=== PATIENT | male | born 1980 | race Caucasian/White ===

== ENCOUNTER 2018-09-21 09:42 | Emergency (ER) | payer OTHER, SELFPAY ==
[2018-09-21 09:45] VITALS: PULSE 69; RESP 16; TEMP 37; O2SAT 98
--- NOTE | 2018-09-21 10:12 | DI.RAD_ITS ---
SYMPTOMS/DIAGNOSIS: SHOULDER PAIN AFTER FALL RIGHT SHOULDER: Five views. No priors. The soft tissues are unremarkable. IMPRESSION: No acute abnormality.
--- NOTE | 2018-09-21 11:26 | ED.GENADUL_ITS ---
Medical Decision Making <Tito Zamora NP - Last Filed: 09/21/18 12:21> Patient presenting to the emergency department for chief complaint of right shoulder pain. Patient states that he was carrying a large heavy table and coworker who was helping him carry it fell dropping the front and causing him to significantly place pressure on his right shoulder and also table landed against the anterior portion of shoulder. Physical exam shows superior anterior shoulder discomfort and full range of motion but pain with overhead extension. Patient denies any other injury or trauma and physical exam is otherwise unremarkable. Plan to perform radiological imaging to rule out acute fracture versus AC joint separate but given full range of motion doubt dislocation at this time. Pending results patient given ibuprofen. Review of radiological imaging shows no acute findings. Patient was given a sling, prescription for ibuprofen, and work note for light duty for the next week. Patient to follow-up with his local orthopedist for reassessment as needed if pain is not improving over the next week. Return precautions discussed. After discussion of diagnosis and plan of care patient has no further needs, questions, or concerns and states clear understanding to return to the emergency department for any worsening symptoms. <Padmini Galeas DO - Last Filed: 09/21/18 12:30> Patient was not seen or evaluated by me. I had opened his chart to assist nurse with plan prior to discharge to confirm provider's plan for sling place HPI <Tito Zamora NP - Last Filed: 09/21/18 12:21> General Mode of arrival: ambulatory . Date/Time Provider Initiated Documentation: 09/21/18 09:50 . Limitations to Documentation: no limitations . Information obtained by: patient . History of Present Illness 38 year old M presents to the emergency department with the chief complaint of Right shoulder pain/injury, described as moderate, with intensity rated at 7. Quality is described as sharp, and is localized to the right and upper extremity. Patient started experiencing this hour(s) (4) Movement worsens symptoms . Patient notes no other symptoms.. Patient did receive the following treatments prior to arrival, none Related Data Home Medications Medication Instructions Recorded Confirmed ibuprofen [IBU] 600 mg PO QID PRN #14 tab 09/21/18 Previous Rx's Medication Instructions Recorded ibuprofen [IBU] 600 mg PO QID PRN #14 tab 09/21/18 Allergies Allergy/AdvReac Type Severity Reaction Status Date / Time No Known Allergies Allergy Unverified 09/21/18 09:48 General Stated Complaint: Orthopedic MARYURI: 4 Review of Systems <Tito Zamora NP - Last Filed: 09/21/18 12:21> Cardiovascular Denies chest pain, Denies syncope and Denies dyspnea Respiratory Denies dyspnea Musculoskeletal Reports as per HPI, Denies numbness and Denies tingling Integumentary/Breasts Denies rash, Denies sores and Denies wounds Neurologic Denies syncope, Denies numbness and Denies tingling PFSH <Tito Zamora NP - Last Filed: 09/21/18 12:21> Social History Smoking and Tabacco status: Current every day Exam <Tito Zamora NP - Last Filed: 09/21/18 12:21> Const General: cooperative and no acute distress Orientation: alert, awake and oriented x3 Resp Effort & Inspection: normal respiratory effort and able to speak in complete sentences Cardio Rate: regular rate Rhythm: regular rhythm Extrem Right upper extremity: shoulder/upper arm Details: tenderness Location: of the A-C joint and over the subacromial bursa, normal ROM and abnormal ROM Details: pain with active ROM (Overhead extension); no ecchymosis, no crepitus and no deformity, elbow/forearm Details: normal to inspection and normal ROM; no tenderness and wrist Details: normal to inspection, normal ROM and radial pulse present; no tenderness Left upper extremity: normal to inspection Course <Tito Zamora NP - Last Filed: 09/21/18 12:21> Vital Signs Temperature 37 C 09/21/18 09:45 Pulse 69 09/21/18 09:45 Respiratory Rate 16 09/21/18 09:45 Pulse Oximetry 98 09/21/18 09:45 Temperature 37 C 09/21/18 09:45 Temperature Source Skin 09/21/18 09:45 Pulse 69 09/21/18 09:45 Respiratory Rate 16 09/21/18 09:45 Pulse Oximetry 98 09/21/18 09:45 Oxygen Delivery Method Room Air 09/21/18 09:45 Oxygen Flow Rate 0 09/21/18 09:45 Pain Level 7 09/21/18 09:45
[2018-09-21 11:48] VITALS: BP 128/64; PULSE 69; RESP 16; TEMP 37; O2SAT 98
== END 2018-09-21 11:55 | disposition home or self-care (01) ==
PROVIDERS: Emergency Provider Nurse Practitioner Family; PCP Neuromusculoskeletal Medicine & OMM
DX: M25.511 Pain in right shoulder (principal); W22.8XXA Striking against or struck by other objects, initial encounter; Y99.0 Civilian activity done for income or pay
CPT/HCPCS: 99283; 73030; 99282; L3650

== ENCOUNTER 2020-06-14 09:37 | Outpatient (CLI) | payer OTHER, SELFPAY ==
[2020-06-16 12:01] LABS: SARS-CoV-2 RNA Not Detected (NotDetected); SARS-CoV-2 RNA Source Nasal/Nares
== END 2020-06-14 09:57 ==
PROVIDERS: PCP Neuromusculoskeletal Medicine & OMM; Visit Provider Student in an Organized Health Care Education/Training Program
DX: Z11.59 Encounter for screening for other viral diseases (principal); Z01.818 Encounter for other preprocedural examination
CPT/HCPCS: U0003

== ENCOUNTER 2020-06-19 07:18 | Day surgery (SDC) | payer OTHER, SELFPAY ==
[2020-06-19 07:23] VITALS: BP 129/90; PULSE 76; RESP 16; TEMP 37.4; O2SAT 96
[2020-06-19] MEDS: Lactated Ringers 1,000 ML 80 ML IV (08:00)
[2020-06-19] MEDS: ceFAZolin 2 GM/50 ML BAG IVPB (09:03)
--- NOTE | 2020-06-19 09:07 | W.PM.DSUDISC ---
Discharge Plan Disposition Patient Disposition: HOME Condition: Good Discharge Details Reason For Visit: Right Carpal Tunnel Syndrome Attending Provider: Jerry Schulte Primary Care Provider: Wesley Alvarado Crenshaw Meds and New Rx's Prescriptions: New acetaminophen 500 mg tablet 500 mg PO Q6H PRN PRN (Reason: pain) Qty: 40 RF: 3 hydrocodone-acetaminophen 5-325 mg tablet 1 tab PO Q8H PRN (Reason: pain) Qty: 3 RF: 0 Continued ibuprofen [IBU] 600 mg tablet 600 mg PO QID PRN (Reason: pain) Qty: 60 RF: 0 Discharge Instructions Stand Alone Forms: Franca Edwards Tunnel Release Referrals: Jerry Schulte MD [ [facility] STAFF PHYSICIAN] - Activity:: Elevate Remove Dressings/Wound Care:: 48 hours Shower/Bathe:: 48 hours Diet:: As Tolerated Discharge Orders Discharge Orders: Discharge Order (Routine); Ordered 06/19/20 Ordered By: Jerry Schulte DS: Diagnosis Discharge Diagnosis (1) Carpal tunnel syndrome: Status: Acute
[2020-06-19] MEDS: Sodium Bicarbonate 50 MEQ/50 ML VIAL (09:30)
[2020-06-19 09:58] VITALS: BP 126/82; PULSE 71; RESP 18; TEMP 36.9; O2SAT 96
--- NOTE | 2020-06-19 11:45 | W.PM.OP ---
Date of service: 06/19/20 Time of Service: 09:26 Operative Note Operative Note DATE OF PROCEDURE: 06/19/20 PRE-OP DIAGNOSIS: Right Carpal Tunnel Syndrome POST-OP DIAGNOSIS: same PROCEDURE: Right Endoscopic Carpal Tunnel Release SURGEON: Jerry Schulte ANESTHESIA: ADRIEL ESTIMATED BLOOD LOSS: 0 PATHOLOGY: none sent TOURNIQUET TIME: 5 COMPLICATIONS: None Patient was transported to: same day Patient's condition: stable Indications: I have seen Tavon in clinic for symptoms of carpal tunnel syndrome. The numbness, tingling, and pain limited function. Clinical exam findings confirmed the diagnosis of carpal tunnel syndrome. Nonoperative measures such as bracing, time, activity modifications had been tried but disability and pain persisted. I discussed carpal tunnel release with the patient. I reviewed the risks of the procedure to include, but not limited to, bleeding, infection, pain, stiffness, incomplete release, damage to nerves or vessels, persistent numbness, recurrence. Despite these risks, the patient elected to proceed. Findings: There was tightened carpal tunnel. This was dilated and released successfully with the endoscopic with increased space within the tunnel. The antebrachial fascia was released proximally freeing the median nerve at the wrist. Procedure Description: Tavon was greeted in the preoperative holding area where the correct side was identified and marked. The consent was reviewed with the patient and signed. The history and physical was updated. All questions were answered. He was taken back to the operating room. The patient was placed into the supine position on the operating room table with the right arm on an arm board. A nonsterile tourniquet was placed high onto the arm. All bony prominences were well padded. Prophylactic antibiotics in the form of Cefazolin were administered. The right arm was then prepped with Chloraprep and draped in a standard fashion with stockinette and extremity drape. A timeout to confirm correct identity, side and site, procedure, allergies, anesthesia, and medical concerns was performed. The surgical site was marked in the volar wrist creases in line with the radial border of the fourth ray. This area was anesthetized with approximately 6cc of 1% Lidocaine. The limb was then exsanguinated with an Esmarch. The skin was incised with a 15 blade, approximately 1cm. The skin only was cut and the deeper tissue was dissected bluntly with a tenotomy scissor, avoiding passing nerve and venous structures. The fascia was penetrated and opened bluntly. A two-prong skin hook was placed under this proximal fascial edge. A series of hamate finders were used to identify and dilate the carpal tunnel. Synovial elevator was used to free synovial attachments to the underside of the transverse carpal ligament. My thumb was kept in the palm to edson the distal extent of the carpal tunnel and correctly position the hand. The [employer]aire endoscope was inserted without difficulty and without resistance. Excellent visualization showed horizontally running fibers of the transverse carpal ligament (TCL). The distal extent of the TCL was visualized and the end of the scope palpated with the thumb. The blade was elevated and withdrawn from distal to proximal. The TCL was split into two flaps. The endoscope was reinserted to confirm complete release and any remnant ligament was incised. The scope was withdrawn and the proximal aspect of the carpal tunnel was grossly inspected and appeared release with the median nerve visible. The antebrachial fascia at the level of the wrist was then freed from the overlying skin and then the underlying median nerve with blunt dissection. This was transected longitudinally for about 3cm proximal to the wrist incision. The wound was then irrigated with easy flow of irrigant distally and proximally. The incision was closed with a single 4-0 Nylon suture. The wound was dressed with Xeroform, Gauze, Kerlix and Paco. The tourniquet was deflated with the initial dressing and held with some pressure. Blood flow returned easily to all digits with capillary refill less than 2 seconds. The patient tolerated the procedure well and was returned to the Same Day Surgery area in a stable condition suffering no known complication.
== END 2020-06-19 10:20 | disposition home or self-care (01) ==
PROVIDERS: PCP Neuromusculoskeletal Medicine & OMM; Visit Provider Student in an Organized Health Care Education/Training Program
PROC: 01N54ZZ Release Median Nerve, Percutaneous Endoscopic Approach (ICD-10-PCS; CPT 29848; principal; 2020-06-19 09:00)
DX: G56.01 Carpal tunnel syndrome, right upper limb (principal)
CPT/HCPCS: 29848; J0690; J2001; J2704; L3650